=== PATIENT | female | born 1950 ===

== ENCOUNTER 2017-09-01 07:36 | Day surgery (SDC) | payer OTHER ==
[~2017-09-01 07:36] MED LIST: FOXAMAX PO; INTESTINEX680 MG PO; LOSARTAN-HCTZ1 EACH PO; METFORMIN HCL500 M1 PO; OMEPRAZOLE20 MG PO; PERCOCET 5/3251 TAB PO; TENORMIN50 M1 PO; ZOCOR20 MG PO
== END 2017-09-01 12:58 | disposition home or self-care (01) ==
LOC: AMB-ENDOS 07:36
DX: K57.30 Diverticulosis of large intestine without perforation or abscess without bleeding (principal); R10.32 Left lower quadrant pain